=== PATIENT | female | born 1980 | race Caucasian/White ===

== ENCOUNTER 2017-05-22 05:40 | Emergency (ER) | payer OTHER ==
[~2017-05-22] VITALS: Ht 165.1 cm; Wt 102.1 kg
[~2017-05-22 05:40] MED LIST: IBUP-974 PO; METO50TE2 PO
[2017-05-22 05:45] VITALS: BP 118/44
--- NOTE | 2017-05-22 05:48 | NUR ---
PT.AMBULATED TO ER BED 10
--- NOTE | 2017-05-22 05:55 | NUR ---
36/F CAME IN W C/O 12/22 LOWER BACK PAIN, WORSENED YESTERDAY BY PROLONGED STANDING AT WORK. DENIES NUMBNESS/TINGLING, DENIES ANY TRAUMA/INJURY, +PMSC TO BLE, +TENDERNESS TO LOWER BACK . PMH: CHRONIC BACK PAIN
[2017-05-22] MEDS ORDERED: DIAZEPAM PFS 10 MG/2 ML SYR IM ONE (06:35)
[2017-05-22] MEDS ORDERED: KETOROLAC 60 MG/2 ML VIAL IM ONE (06:35)
--- NOTE | 2017-05-22 07:01 | NUR ---
Patient discharged with v/s stable. Written and verbal after care instructions given and explained. Patient alert, oriented and verbalized understanding of instructions. Ambulatory with steady gait. All questions addressed prior to discharge. ID band removed. Patient advised to follow up with PMD. Rx of NORCO, VALIUM, IBUPROFEN given. Patient educated on indication of medication including possible reaction and side effects. Opportunity to ask questions provided and answered.
[2017-05-22 07:02] VITALS: BP 128/76
== END 2017-05-22 07:01 | disposition home or self-care (01) ==
LOC: MED 05:40
DX: M54.5 Low back pain (principal); J45.909 Unspecified asthma, uncomplicated; I45.6 Pre-excitation syndrome; F17.200 Nicotine dependence, unspecified, uncomplicated; Z90.49 Acquired absence of other specified parts of digestive tract; Z88.5 Allergy status to narcotic agent
CPT/HCPCS: 96372; 99284; J1885; J3360; 81002; 81025

== ENCOUNTER 2017-05-28 13:05 | Emergency (ER) | payer OTHER ==
[~2017-05-28] VITALS: Ht 165.1 cm; Wt 102.1 kg
[2017-05-28 13:09] VITALS: BP 116/71
--- NOTE | 2017-05-28 13:25 | NUR ---
36/F PRESENT TO ER C/O LOWER BACK PAIN x YESTERDAY. PT STATES SHE WAS SEEN LAST WEEK FOR SAME S/SX IN [facility] ER. HX: CHRONIC BACK PAIN 2 YEARS MEDS: NORCO, VALIUM . PT STATES IT MOVING DOWN ON MY RIGHT LEG NOW, DENIES N/V/D; SKIN IS PINK/WARM/DRY; AAOX4 WITH EVEN AND STEADY GAIT; LUNGS CLEAR BL; HR EVEN AND REGULAR; PT DENIES ANY FEVER, CP, SOB, OR COUGH AT THIS TIME; PATIENT STATES PAIN OF 8/10 AT THIS TIME; PATIENT POSITIONED FOR COMFORT; HOB ELEVATED; BEDRAILS UP X2; BED DOWN. ER MD MADE AWARE OF PT STATUS.
[2017-05-28] MEDS ORDERED: KETOROLAC 30 MG/ML VIAL IM ONE (13:50)
[2017-05-28] MEDS ORDERED: HYDROcodone/APAP 5/325 MG 1 TAB TAB PO ONE (13:50)
--- NOTE | 2017-05-28 14:08 | NUR ---
PT BACK FROM XRAY
--- NOTE | 2017-05-28 14:25 | NUR ---
Patient discharged with v/s stable. Written and verbal after care instructions given and explained. Patient alert, oriented and verbalized understanding of instructions. Ambulatory with steady gait. All questions addressed prior to discharge. ID band removed. Patient advised to follow up with PMD. Rx of NAPROSYN,NORCO given. Patient educated on indication of medication including possible reaction and side effects. Opportunity to ask questions provided and answered.
[2017-05-28 14:42] VITALS: BP 120/63
== END 2017-05-28 14:25 | disposition home or self-care (01) ==
LOC: MED 13:05
DX: M54.41 Lumbago with sciatica, right side (principal); J45.909 Unspecified asthma, uncomplicated; I45.6 Pre-excitation syndrome; Z88.5 Allergy status to narcotic agent
CPT/HCPCS: 72100; 96372; 99284; J1885

== ENCOUNTER 2017-10-25 17:29 | Inpatient (IN) | payer OTHER ==
[~2017-10-25] VITALS: Ht 165.1 cm; Wt 96.2 kg
[2017-10-25 17:40] VITALS: BP 142/78
--- NOTE | 2017-10-25 17:45 | NUR ---
37 YO F BIB SELF TO ER FOR FLU LIKE SYMPTOMS. PT STATES FEELING "BALLS ON MY NECK" X 3DAYS. WITH FEVER SINCE MIDDLE OF NIGHT. PT STATES PALPATATION WITH SOB, O2 SAT AT 100, TACHYCARDIA 115. DENIES VOMITING, REPORTS FEELING NAUSEOUS. AMBULATORY W/ STEADY GAIT. AAOX4. GCS 15. CMS INTACT. RR EVEN AND UNLABORED. LUNGS CLEAR. ABD SOFT, NON-TENDER. BOWEL SOUNDS ACTIVE X 4 QUADRANTS. BILATERAL LEG SWELLING +1 NON-PITTING/DISCOLORATION NOTED, PT STATES THEY HAVE BEEN LIKE THAT FOR "SOME TIME", UNSURE HOW MANY DAYS/HOW LONG. PEDAL AND POPLITEAL PULSES STONG AND PALPABLE BILATERALLY, WITH CAPILLARY REFILL LESS THAN 3 SECONDS. FULL ROM. ER MD NOTIFIED. PT NEEDS MET. SAFETY PRECAUTIONS IN PLACE. WILL CONTINUE TO MONITOR. 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
[2017-10-25] MEDS ORDERED: ACETAMINOPHEN EXTRA STRENGTH 500 MG TAB PO ONE (17:50)
[2017-10-25] MEDS ORDERED: NACL 0.9% 1,000 ML IV ONE ×2 (17:55→19:15)
[2017-10-25 18:16] LABS: BASOPHILS # (AUTO) 0.1 K/uL (0.00-0.22); BASOPHILS % (AUTO) 0.5 % (0.0-2.0); EOSINOPHILS % (AUTO) 0.2 % (0.0-4.0); HEMATOCRIT 43.6 % (36-48); HEMOGLOBIN 14.6 g/dL (12.0-16.0); LYMPHOCYTES # (AUTO) 1.1 K/uL (2.5-16.5); LYMPHOCYTES % (AUTO) 7.9 % (20.5-51.1); MEAN CORPUSCULAR HEMOGLOBIN 31 pg (27-31); MEAN CORPUSCULAR HGB CONC 33 g/dL (33-37); MEAN CORPUSCULAR VOLUME 91.8 fL (80-94); MONOCYTES # (AUTO) 0.8 K/uL (0.8-1.0); MONOCYTES % (AUTO) 5.9 % (1.7-9.3); NEUTROPHILS # (AUTO) 11.7 K/uL (1.8-7.7); NEUTROPHILS % (AUTO) 85.5 % (42.2-75.2); PLATELET COUNT (AUTO) 226 K/uL (140-450); RED BLOOD CELL COUNT(AUTO) 4.75 MIL/uL (4.20-5.40); RED CELL DISTRIBUTION WIDTH 12.7 % (11.6-13.7); WHITE BLOOD COUNT (AUTO) 13.7 K/uL (4.8-10.8)
--- NOTE | 2017-10-25 18:30 | NUR ---
PT RESTING ON [facility] AT THIS TIME W/ VSS AND SAFETY PRECAUTIONS IN PLACE.. WILL CONTINUE TO MONITOR.
[2017-10-25 18:32] LABS: CARBON DIOXIDE 25.1 mmol/L (21-32); CREATININE 1.1 mg/dL (0.6-1.3); POTASSIUM 3.1 mmol/L (3.5-5.1)
[2017-10-25 18:38] LABS: ALBUMIN 3.7 g/dL (3.4-5.0); TOTAL BILIRUBIN 0.4 mg/dL (0.0-1.0)
[2017-10-25 18:54] LABS: APPEARANCE,URINE CLEAR (CLEAR); BILIRUBIN,URINE NEGATIVE (NEGATIVE); BLOOD, URINE 2+ (NEGATIVE); COLOR,URINE YELLOW (YELLOW); LEUKOCYTE ESTERASE ,URINE TRACE (NEGATIVE); NITRITE, URINE NEGATIVE (NEGATIVE); PH,URINE 6.5 (5.0-9.0); UGLUCOSE NEGATIVE (NEGATIVE)
--- NOTE | 2017-10-25 19:05 | NUR ---
CRITICAL LAB VALUE RECEIVED FROM LAB AT THIS TIME, LACTIC ACID 2.9 ER MD MARTINES NOTIFIED.
--- NOTE | 2017-10-25 19:12 | NUR ---
AMBULATED TO BATHROOM WITH ASSIST
[2017-10-25] MEDS ORDERED: KETOROLAC 30 MG/ML VIAL IVP ONE (19:15)
--- NOTE | 2017-10-25 19:15 | NUR ---
PT SITTING UP IN BED, COMFORT MEASURES OFFERRED. PT TOLERATED WELL. CULTURE COMPLETE. VITALS STABLE.
[2017-10-25 19:17] LABS: PROTHROMBIN TIME 9.5 secs (10.8-13.4)
--- NOTE | 2017-10-25 19:35 | NUR ---
REPORT GIVEN TO GEETHA MOTA AT THIS TIME.
[2017-10-25 19:59] LABS: BARBITURATE, URINE NEG. ng/ml (NEG <=200); BENZODIAZEPINE, URINE NEG. ng/mL (NEG <=200); CANNABINOID, URINE NEG. ng/mL (NEG <=50); COCAINE, URINE NEG. ng/mL (NEG <=300); OPIATE, URINE NEG. ng/mL (NEG <=2000); PHENCYCLIDINE SCREEN,URINE NEG. ng/mL (NEG <=25); RBC,URINE 3-10 (FEW) /HPF (0-5)
--- NOTE | 2017-10-25 20:15 | NUR ---
PT AMBULATED WITH ASSISTANCE TO THE RESTROOM. TOLERATED WELL.
[2017-10-25] MEDS ORDERED: GABA100C PO (20:21)
[2017-10-25] MEDS ORDERED: cefTRIAXone 1,000 MG VIAL ONE (20:34)
[2017-10-25] MEDS ORDERED: NACL 0.9% 1,000 ML IV SCH (21:15)
[2017-10-25 22:05] VITALS: BP 100/52
--- NOTE | 2017-10-25 22:05 | NUR ---
RECEIVED REPORT BY ER NURSE SVETLANA-RN. PT ARRIVED TO UNIT VIA WHEELCHAIR. PT RESTING IN BED. AOX4, ON ROOM AIR WITH IV SITE LEFT AC #20G. SKIN INTACT, AMBULATORY. DISCUSSED PLAN OF CARE AND PT VERBALIZED UNDERSTANDING. NO S/S OF RESPIRATORY DISTRESS OR DISCOMFORT NOTED AT THIS TIME. MRSA COLLECTED. WHITE BOARD UPDATED. ORIENTED PT TO BEDROOM, CALL LIGHT, BED, RESTROOM. BED IN LOWEST POSITION, BED BREAKS ON, BOTH SIDE RAILS UP. BED SIDE TABLE AND CALL LIGHT ARE WITHIN REACH. WILL CONTINUE TO MONITOR.
--- NOTE | 2017-10-25 22:10 | NUR ---
Pt report given to PRAVEEN INIGUEZ. Transfer of care at this time.PT VITALS STABLE
--- NOTE | 2017-10-25 22:47 | NUR ---
Patient will be admitted to care of DR. AGUILAR. Admited to MED SURG. Will go to room 105 b. Belongings list completed. Report to PRAVEEN INIGUEZ.
--- NOTE | 2017-10-25 23:00 | NUR ---
PAGED DR. AGUILAR- DR. STRINGER ON-CALL.
[2017-10-26] VITALS: BP 103/58
--- NOTE | 2017-10-26 | NUR ---
VITAL SIGNS TAKEN AND TOLERATED WELL. PT C/O HEADACHE 06/22-WILL ADMINISTER PAIN MEDICATION. NO S/S OF RESPIRATORY DISTRESS. WILL CONTINUE TO MONITOR.
--- NOTE | 2017-10-26 | NUR ---
DR. STRINGER ORDERED TYLENOL 650MG Q6H PRN PAIN, GABAPENTIN 100MG HS, ROCEPHIN 1G Q24H, AND SCD'S. TRAMADOL WAS NOT ORDERED PER PT ALLERGY TO MORPHINE.
[2017-10-26] MEDS ORDERED: ACETAMINOPHEN 325 MG TAB PO PRN (00:15)
--- NOTE | 2017-10-26 02:00 | NUR ---
PT SLEEPING IN BED AT THIS TIME. NO S/S OF RESPIRATORY DISTRESS OR DISCOMFORT NOTED AT THIS TIME. WILL CONTINUE TO MONITOR.
--- NOTE | 2017-10-26 04:00 | NUR ---
PT CONTINUES TO SLEEP. NO S/S OF RESPIRATORY DISTRESS OR DISCOMFORT NOTED AT THIS TIME. WILL CONTINUE TO MONITOR.
--- NOTE | 2017-10-26 06:00 | NUR ---
PT CONTINUES TO SLEEP. NO S/S OF RESPIRATORY DISTRESS OR DISCOMFORT NOTED AT THIS TIME. WILL CONTINUE TO MONITOR.
--- NOTE | 2017-10-26 07:20 | NUR ---
ENDORSED PT CARE TO DAY SHIFT NURSE THEODORA FOR CONTINUITY OF CARE.
--- NOTE | 2017-10-26 07:25 | NUR ---
RECEIVED REPORT FROM ACTUARIAL TRAINEE NURSE. PT IS SLEEPING IN BED BUT EASILY AWAKEN, PT IS AAOX4, AMBULATORY, SKIN IS INTACT, ON RA, IV IS ON THE LEFT FA, PATENT, INTACT, FLUSHING WELL, NO S/S OF RESPIRATORY DISTRESS OR DISCOMFORT NOTED, DISCUSSED PLAN OF CARE WITH PT, PT VERBALIZED UNDERSTANDING, SAFETY/FALL PRECAUTIONS ARE IN PLACE, CALL LIGHT IS WITHIN REACH, WILL CONTINUE TO MONITOR.
[2017-10-26 08:00] VITALS: BP 116/61
--- NOTE | 2017-10-26 08:48 | NUR ---
PATIENT HAS BEEN SCREENED AND CATEGORIZED HIGH NUTRITION RISK. PATIENT WILL BE SEEN WITHIN 1-2 DAYS OF ADMISSION. 10/26/17 10/27/[address]
[2017-10-26] MEDS ORDERED: BENZOCAINE/MENTHOL 1 LOZ MM PRN (09:20)
[2017-10-26] MEDS ORDERED: IBUPROFEN 400 MG TAB PO PRN (09:20)
--- NOTE | 2017-10-26 09:34 | NUR ---
DR. AGUILAR HERE TO SEE PATIENT.
--- NOTE | 2017-10-26 11:10 | NUR ---
PT SAID SHE WANTED TO LEAVE. I ASKED HER IF SHE HAD ANY QUESTIONS FOR ME OR THE DOCTOR. PT STATED "THERE'S NO POINT OF ME STAYING HERE, ILL FOLLOW UP WITH MY DOCTOR." IV REMOVED, CATHETER TIP INTACT, ID WRIST BAND REMOVED. PT LEFT IN STABLE CONDITION.
--- NOTE | 2017-10-26 13:24 | NUR ---
CM NOTE INITIAL REVIEW FAXED TO [facility] [phone]
[2017-10-26] MEDS ORDERED: GABAPENTIN 100 MG CAP PO SCH (21:00)
== END 2017-10-26 11:10 | disposition left against medical advice (07) | DRG 720 ==
LOC: MED 17:29 → MTU 21:18 → OBSVTOIN 22:15
PROVIDERS: ADMIT Internal Medicine; ATTEND Internal Medicine
DX: A41.9 Sepsis, unspecified organism (principal); E87.1 Hypo-osmolality and hyponatremia; N39.0 Urinary tract infection, site not specified; E87.6 Hypokalemia; J02.9 Acute pharyngitis, unspecified; Z88.6 Allergy status to analgesic agent; J45.909 Unspecified asthma, uncomplicated; Z98.51 Tubal ligation status; Z90.49 Acquired absence of other specified parts of digestive tract
CPT/HCPCS: 96361; 96365; 96375; 99285; G0378; 36415; 71045; 80053; 80305; 81001; 81025; 83605; 85025; 85610; 85730; 87040; 87081; 87086; 93005; J0696; J1885; J7030; J7060; Q0092

== ENCOUNTER 2018-11-02 19:30 | Emergency (ER) | payer OTHER ==
[~2018-11-02] VITALS: Ht 165.1 cm; Wt 90.7 kg
[~2018-11-02 19:30] MED LIST changes: +GABA100C PO; -METO50TE2 PO
[2018-11-02 19:40] VITALS: BP 126/64
--- NOTE | 2018-11-02 20:04 | NUR ---
PT TO ED FOR C/O RT EAR ITCHING AND PAIN S/P INSECT BITE X 1 DAY. MILD SWELLING AND REDNESS NOTED TO RT EAR. NO DRAINAGE OR DISCHARGE NOTED. PT PLACED INTO CHAIR, PENDING EVAL.
[2018-11-02 20:50] VITALS: BP 126/64
--- NOTE | 2018-11-02 20:51 | NUR ---
Patient discharged with v/s stable. Written and verbal after care instructions given and explained. Patient alert, oriented and verbalized understanding of instructions. Ambulatory with steady gait. All questions addressed prior to discharge. ID band removed. Patient advised to follow up with PMD. Rx of KEFELX given. Patient educated on indication of medication including possible reaction and side effects. Opportunity to ask questions provided and answered.
== END 2018-11-02 20:50 | disposition home or self-care (01) ==
LOC: MED 19:30
DX: L08.89 Other specified local infections of the skin and subcutaneous tissue (principal); F17.210 Nicotine dependence, cigarettes, uncomplicated; Z88.6 Allergy status to analgesic agent; Z79.899 Other long term (current) drug therapy
CPT/HCPCS: 99283

== ENCOUNTER 2019-12-29 08:38 | Observation (INO) | payer OTHER ==
[~2019-12-29] VITALS: Ht 165.1 cm; Wt 94.8 kg
--- NOTE | 2019-12-29 08:41 | NUR ---
Patient ambulated to bed 11. RN evaluating patient at bedside.
[2019-12-29 08:46] VITALS: BP 122/72
[2019-12-29] MEDS ORDERED: HYDROmorphone PFS 2 MG/ML SYR IVP ONE (08:55)
[2019-12-29] MEDS ORDERED: ONDANSETRON 4 MG/2 ML VIAL IVP ONE (08:55)
[2019-12-29] MEDS ORDERED: NACL 0.9% 1,000 ML IV SCH (08:55)
[2019-12-29] MEDS ORDERED: KETOROLAC 30 MG/ML VIAL IVP ONE ×2 (08:55→11:30)
--- NOTE | 2019-12-29 09:09 | NUR ---
pt states unable to provide urine sample at this time
--- NOTE | 2019-12-29 09:11 | NUR ---
39/F c/o right lower quadrant pain since 0600 today, denies N/V/D. moaning in pain. VSS, connected to bedside monitor. PMH: BRIAN
--- NOTE | 2019-12-29 09:35 | NUR ---
called CT department to take pt to CT scan. Per Dr. Timmons, okay to not wait on labs prior to CT scan w/ contrast
[2019-12-29 09:36] LABS: BASOPHILS # (AUTO) 0.1 K/uL (0.00-0.22); BASOPHILS % (AUTO) 0.7 % (0.0-2.0); EOSINOPHILS # (AUTO) 0.2 K/uL (0-0.4); EOSINOPHILS % (AUTO) 1.8 % (0.0-4.0); HEMATOCRIT 44.3 % (36-48); HEMOGLOBIN 14.9 g/dL (12.0-16.0); LYMPHOCYTES # (AUTO) 2.8 K/uL (2.5-16.5); LYMPHOCYTES % (AUTO) 22.5 % (20.5-51.1); MEAN CORPUSCULAR HEMOGLOBIN 31 pg (27-31); MEAN CORPUSCULAR HGB CONC 34 g/dL (33-37); MEAN CORPUSCULAR VOLUME 92.3 fL (80-94); MONOCYTES # (AUTO) 0.9 K/uL (0.8-1.0); MONOCYTES % (AUTO) 6.9 % (1.7-9.3); NEUTROPHILS # (AUTO) 8.5 K/uL (1.8-7.7); NEUTROPHILS % (AUTO) 68.1 % (42.2-75.2); PLATELET COUNT (AUTO) 290 K/uL (140-450); RED CELL DISTRIBUTION WIDTH 12.7 % (11.6-13.7); WHITE BLOOD COUNT (AUTO) 12.4 K/uL (4.8-10.8)
[2019-12-29 09:39] LABS: ALBUMIN 4.2 g/dL (3.4-5.0); ANION GAP 15.7 (8-16); CARBON DIOXIDE 25.2 mmol/L (21-32); CREATININE 1.3 mg/dL (0.6-1.3); POTASSIUM 3.9 mmol/L (3.5-5.1); TOTAL BILIRUBIN 0.6 mg/dL (0.0-1.0)
--- NOTE | 2019-12-29 09:41 | NUR ---
to CT scan via rburns
--- NOTE | 2019-12-29 09:49 | NUR ---
informed lab that urine sample is ready to be picked up
--- NOTE | 2019-12-29 09:50 | NUR ---
US tech at bedside for exam.
--- NOTE | 2019-12-29 09:54 | NUR ---
Patient returned from CT scan. RN is reevaluating the patient at bedside.
--- NOTE | 2019-12-29 09:54 | NUR ---
back from CT scan via gurney. U/S tech is waiting at bedside.
[2019-12-29 10:01] LABS: APPEARANCE,URINE HAZY (CLEAR); BILIRUBIN,URINE 1+ (NEGATIVE); BLOOD, URINE 3+ (NEGATIVE); COLOR,URINE DARK YELLOW (YELLOW); LEUKOCYTE ESTERASE ,URINE TRACE (NEGATIVE); NITRITE, URINE POSITIVE (NEGATIVE); UGLUCOSE NEGATIVE (NEGATIVE)
[2019-12-29 10:07] LABS: BARBITURATE, URINE NEGATIVE ng/ml (NEG <=200); BENZODIAZEPINE, URINE NEGATIVE ng/mL (NEG <=200); CANNABINOID, URINE POSITIVE ng/mL (NEG <=50); COCAINE, URINE NEGATIVE ng/mL (NEG <=300); OPIATE, URINE POSITIVE ng/mL (NEG <=2000); PHENCYCLIDINE SCREEN,URINE NEGATIVE ng/mL (NEG <=25)
[2019-12-29 10:14] LABS: RBC,URINE 20-50 /HPF (0-5); URINE AMORPHOUS URATE 1+ /HPF (None Seen)
[2019-12-29] MEDS ORDERED: cefTRIAXone 1,000 MG VIAL ONE (10:38)
[2019-12-29] MEDS ORDERED: NACL 0.9% 1,000 ML IV ONE (11:05)
--- NOTE | 2019-12-29 11:22 | NUR ---
pt crying in pain, states 10/[address] Timmons notified and is speaking to pt at bedside.
[2019-12-29] MEDS ORDERED: FLUC100T PO (11:39)
[2019-12-29] MEDS ORDERED: ATA25 PO (11:39)
[2019-12-29] MEDS ORDERED: HYDR-1096 PO (11:43)
[2019-12-29] MEDS ORDERED: DULO20EC PO (11:46)
[2019-12-29] MEDS ORDERED: ACETAMINOPHEN 325 MG TAB PO PRN (12:45)
[2019-12-29] MEDS ORDERED: MORPHINE SULFATE 2 MG/ML SYR IVP PRN (12:45)
[2019-12-29] MEDS ORDERED: ONDANSETRON 4 MG/2 ML VIAL IVP PRN (12:45)
[2019-12-29] MEDS ORDERED: HYDROmorphone 1 MG/ML AMP IVP PRN (13:00)
--- NOTE | 2019-12-29 13:11 | NUR ---
Patient will be admitted to care of Dr. Hernandez. Admited to Med Surg. Will go to room 126B. Belongings list completed. Report to Marni INIGUEZ.
[2019-12-29 13:20] VITALS: BP 113/71
--- NOTE | 2019-12-29 13:20 | NUR ---
RECEIVED REPORT FROM NURSE BOUDREAUX FOR CONTINUITY OF CARE, PT ARRIVED ON UNIT AT 1311, INTRODUCE SELF TO PT, ORIENT PT TO ROOM, OBTAIN MRSA SWAB SAMPLE, UPDATED WHITEBOARD, PT HAS LEFT AC 20G INFUSING NS AT 125ML/H, BED IN LOW POSITION, SAFETY MEASURES IN PLACE, CALL LIGHT WITHIN REACH, WILL CONTINUE TO MONITOR.
[2019-12-29] MEDS: NACL 0.9% 1,000 ML IV SCH ×2 (13:39→21:49)
--- NOTE | 2019-12-29 14:03 | NUR ---
ADMINISTERED DILAUDID FOR MODERATE PAIN OF STOMACH, PT HAS KIDNEY STONE, PT STATES SHE HAS DULL PAIN, MEDICATION EDUCATION PROVIDED, PT VERBALIZED UNDERSTANDING, PT TOLERATED WELL, PT IS STABLE, CALL LIGHT WITHIN REACH, WILL CONTINUE TO MONITOR.
--- NOTE | 2019-12-29 15:00 | NUR ---
PT RESTING IN BED, NO SIGNS OF DISTRESS NOTED, RESPIRATIONS ARE EVEN AND UNLABORED ON ROOM AIR, CALL LIGHT WITHIN REACH, WILL CONTINUE TO MONITOR.
[2019-12-29 16:00] VITALS: BP 104/63
--- NOTE | 2019-12-29 17:00 | NUR ---
PT ASLEEP IN BED, NO SIGNS OF DISTRESS NOTED, RESPIRATIONS ARE EVEN AND UNLABORED ON ROOM AIR, CALL LIGHT WITHIN REACH, WILL CONTINUE TO MONITOR.
--- NOTE | 2019-12-29 18:59 | NUR ---
NOTIFIED DR RAMIREZ PT HAS PENDING POSSIBLE URETERAL STENTING, ASK IF PT CAN BE NPO TONIGHT FOR POSSIBLE PROCEDURE, RECEIVED TORB FROM DR RAMIREZ FOR NPO AFTER MIDNIGHT.
--- NOTE | 2019-12-29 19:24 | NUR ---
ENDORSE PT TO NIGHT NURSE FOR CONTINUITY OF CARE, PT IS STABLE
--- NOTE | 2019-12-29 19:25 | NUR ---
RECEIVED BEDSIDE ENDORSEMENT FROM AM SHIFT RN. PATIENT IS RESTING, NO SOB, ON ROOM AIR, LH 22G, INTACT, SAFETY MEASURES IN PLACE, PLAN OF CARE DISCUSSED, CALL LIGHT WITHIN REACH.
--- NOTE | 2019-12-29 21:53 | NUR ---
CHANGED A NEW BAG OF NS 1 L AT 125 CC/HR ORDERED, IV SITE PATENT.
[2019-12-30] VITALS: BP 119/73
--- NOTE | 2019-12-30 | NUR ---
PATIENT IS ASLEEP, RESPIRATION EVEN AND UNLABORED.
--- NOTE | 2019-12-30 02:00 | NUR ---
NO C/O PAIN, KEPT COMFORTABLE.
--- NOTE | 2019-12-30 04:32 | NUR ---
CHECKED PATIENT, NOT IN DISTRESS. CALL LIGHT WITHIN REACH.
[2019-12-30] MEDS: NACL 0.9% 1,000 ML IV SCH ×3 (04:45→14:30)
[2019-12-30 05:50] LABS: BASOPHILS # (AUTO) 0.1 K/uL (0.00-0.22); BASOPHILS % (AUTO) 0.7 % (0.0-2.0); EOSINOPHILS # (AUTO) 0.2 K/uL (0-0.4); EOSINOPHILS % (AUTO) 2.4 % (0.0-4.0); HEMATOCRIT 38.8 % (36-48); HEMOGLOBIN 12.9 g/dL (12.0-16.0); LYMPHOCYTES # (AUTO) 2.2 K/uL (2.5-16.5); LYMPHOCYTES % (AUTO) 23.3 % (20.5-51.1); MEAN CORPUSCULAR HEMOGLOBIN 31 pg (27-31); MEAN CORPUSCULAR HGB CONC 33 g/dL (33-37); MEAN CORPUSCULAR VOLUME 93.4 fL (80-94); MONOCYTES # (AUTO) 0.6 K/uL (0.8-1.0); NEUTROPHILS # (AUTO) 6.3 K/uL (1.8-7.7); NEUTROPHILS % (AUTO) 67.6 % (42.2-75.2); PLATELET COUNT (AUTO) 225 K/uL (140-450); RED BLOOD CELL COUNT(AUTO) 4.15 MIL/uL (4.20-5.40); RED CELL DISTRIBUTION WIDTH 14.9 % (11.6-13.7); WHITE BLOOD COUNT (AUTO) 9.4 K/uL (4.8-10.8)
--- NOTE | 2019-12-30 06:33 | NUR ---
IVF FINISHED, HANGED A NEW BAG OF NS 1L AT 125CC/HR, IV SITE INTACT AND PATENT. NO C/O PAIN, CALL LIGHT WITHIN REACH.
--- NOTE | 2019-12-30 07:25 | NUR ---
PATIENT IN STABLE CONDITION, BEDSIDE ENDORSEMENT GIVEN TO AM SHIFT RN FOR CONTINUITY OF CARE.
--- NOTE | 2019-12-30 07:30 | NUR ---
RECEIVED BEDSIDE REPORT FROM HEALTHCARE TRANSLATOR RN FOR CONTINUITY OF CARE. PATIENT RESTING IN BED WITH NO ACUTE DISTRESS NOTED. RESPIRATORY EVEN AND UNLABORED. SKIN WARM AND DRY, INTACT. IV SITE LEFT AN 20G INTACT INFUSING NS @ 125CC/HR. NPO STATUS NOTED. ABDOMEN SOFT NON TENDER. SAFETY MEASURES IN PLACE, WILL CONTINUE TO MONITOR.
[2019-12-30 07:47] LABS: ANION GAP 11.8 (8-16); CARBON DIOXIDE 25.1 mmol/L (21-32); CREATININE 1.1 mg/dL (0.6-1.3); POTASSIUM 3.9 mmol/L (3.5-5.1)
[2019-12-30 08:00] VITALS: BP 111/64
[2019-12-30 08:18] LABS: MAGNESIUM 2.1 mg/dL (1.8-2.4); PHOSPHORUS 3.1 mg/dL (2.5-4.9)
[2019-12-30] MEDS ORDERED: ENOXAPARIN 40 MG/0.4 ML SYR SUBQ SCH (09:00)
--- NOTE | 2019-12-30 09:20 | NUR ---
PATIENT HAS BEEN SCREENED AND CATEGORIZED LOW NUTRITION RISK. PATIENT WILL BE SEEN WITHIN 7 DAYS OF ADMISSION. 01/05/[address]
--- NOTE | 2019-12-30 11:05 | NUR ---
MADE ROUNDS, PATIENT RESTING IN BED WITH RIGHT LATERAL POSITION. DENIES DISCOMFORT. IV INFUSING INDICATED. PATIENT REQUESTED FOR FOOD. EXPLAINED TO THE PATIENT THAT NPO STATUS. SAFETY MEASURES IN PLACE, WILL CONTINUE TO MONITOR.
--- NOTE | 2019-12-30 11:43 | NUR ---
DISCHARGE PLANNING: POC DISCUSSED WITH DR RAMIREZ. PER DR. RAMIREZ, POSSIBLE DC TODAY TO FOLLOW UP WITH UROLOGY OUT PATIENT. Addendum: 12/30/19 at 1153 by Mary Russell ORDER SENT TO [facility]. WILL FOLLOW UP Addendum: 12/30/19 at 1503 by Mary Russell CM JUDITH ABDUL OF [facility] TO CONTACT [facility] AFTER HOURS AT [phone] AND FAX NUMBER [phone]. CONTACTED THE PROVIDED NUMBER, NO ANSWER. IT JUST KEPT ON RINGING. CONTACTED [facility] AFTER HOURS AGAIN TO NO AVAIL. WILL FOLLOW UP DURING BUSINESS HOURS.
--- NOTE | 2019-12-30 14:13 | NUR ---
EXPLAINED TO THE PATIENT ABOUT THE DISCHARGE ORDER. EXPLAINED TO THE PATIENT THAT NEED SOME TIME TO WORK ON THE DISCHARGE PAPER. CALLED [facility] TO BRING FOOD TRAY TO THE PATIENT. PATIENT VERBALIZED UNDERSTANDING.
--- NOTE | 2019-12-30 14:30 | NUR ---
PT REFUSED TO SIGN THE DISCHARGE PAPER, PATIENT REFUSED TO SIGN THE AMA. PATIENT STATED THAT SHE WAS UNHAPPY THAT KEEP HER NPO EVEN WE PROVIDED SANDWICH AND LUNCH TRAY. SHE STATED THAT SHE DID NOT LIKE THE FOOD WE PROVIDED AND GOT VERY MAD. SHE SAID SHE WOULD FOLLOW UP WITH HER PRIMARY MD. PATIENT REMOVED IV BY HERSELF, AND LEFT HOSPITAL.
== END 2019-12-30 14:30 | disposition home or self-care (01) ==
LOC: MED 08:38 → MMU 12:46
PROVIDERS: ADMIT Hospitalist; ATTEND Hospitalist
DX: N20.0 Calculus of kidney (principal); I45.6 Pre-excitation syndrome; F41.9 Anxiety disorder, unspecified; F15.10 Other stimulant abuse, uncomplicated; Z79.899 Other long term (current) drug therapy; Z88.5 Allergy status to narcotic agent
CPT/HCPCS: 36415; 74177; 76856; 80048; 80053; 80305; 81001; 83690; 83735; 84100; 84703; 85025; 87081; 87086; 96361; 96365; 96375; 96376; 99285; C1758; G0378; J0696; J1170; J1885; J2405; J7030; J7060; Q0092; Q9967

== ENCOUNTER 2020-04-25 15:33 | Emergency (ER) | payer OTHER ==
[~2020-04-25] VITALS: Ht 165.1 cm; Wt 93.0 kg
[~2020-04-25 15:33] MED LIST changes: +DULO20EC PO; +FLUC100T PO; -GABA100C PO; +HYDR-1096 PO; -IBUP-974 PO
[2020-04-25 15:40] VITALS: BP 120/64
--- NOTE | 2020-04-25 15:55 | NUR ---
PATIENT W/C ASSISTED TO BED 11.
[2020-04-25] MEDS ORDERED: KETOROLAC 30 MG/ML VIAL IM ONE (16:25)
--- NOTE | 2020-04-25 17:16 | NUR ---
PT PLACED IN SHORT POST. SPLINT CMS WNL BEFORE AND AFTER
[2020-04-25 17:54] VITALS: BP 120/64
--- NOTE | 2020-04-25 17:54 | NUR ---
Patient discharged with v/s stable. Written and verbal after care instructions given and explained. Patient alert, oriented and verbalized understanding of instructions. Ambulatory with CRUTCHES. All questions addressed prior to discharge. ID band removed. Patient advised to follow up with PMD. Rx of IBUPROFEN given. Patient educated on indication of medication including possible reaction and side effects. Opportunity to ask questions provided and answered.
== END 2020-04-25 17:54 | disposition home or self-care (01) ==
LOC: MED 15:33
DX: S86.811A Strain of other muscle(s) and tendon(s) at lower leg level, right leg, initial encounter (principal); I51.9 Heart disease, unspecified; Z85.9 Personal history of malignant neoplasm, unspecified; Z88.5 Allergy status to narcotic agent; X50.9XXA Other and unspecified overexertion or strenuous movements or postures, initial encounter; Y93.89 Activity, other specified; Y92.89 Other specified places as the place of occurrence of the external cause; Y99.8 Other external cause status
CPT/HCPCS: 29515; 73590; 96372; 99283; J1885; 99284

== ENCOUNTER 2020-09-20 17:56 | Emergency (ER) | payer OTHER ==
[~2020-09-20] VITALS: Ht 165.1 cm; Wt 103.4 kg
[2020-09-20 18:00] VITALS: BP 110/92
== END 2020-09-20 18:15 | disposition left against medical advice (07) ==
LOC: MED 17:56
DX: R06.02 Shortness of breath (principal); Z53.21 Procedure and treatment not carried out due to patient leaving prior to being seen by health care provider

== ENCOUNTER 2023-01-06 10:32 | Emergency (ER) | payer OTHER ==
[~2023-01-06] VITALS: Ht 165.1 cm; Wt 85.4 kg
[2023-01-06 10:40] VITALS: BP 118/78; PULSE 92; RESP 20; TEMP 97.9; O2SAT 97
[2023-01-06] MEDS ORDERED: TRAM-748 PO (11:34)
[2023-01-06] MEDS ORDERED: KETOROLAC 30 MG/ML VIAL IM ONE (11:40)
== END 2023-01-06 12:01 | disposition home or self-care (01) ==
LOC: MED 10:32
DX: M54.50 Low back pain, unspecified (principal); I25.10 Atherosclerotic heart disease of native coronary artery without angina pectoris; Z88.5 Allergy status to narcotic agent; Z79.899 Other long term (current) drug therapy
CPT/HCPCS: 96372; 99283; J1885

== ENCOUNTER 2023-10-09 22:31 | Emergency (ER) | payer MEDICAID, OTHER ==
[~2023-10-09] VITALS: Ht 165.1 cm; Wt 90.7 kg
[~2023-10-09 22:31] MED LIST changes: +TRAM-748 PO
[2023-10-09 22:40] VITALS: BP 136/81; PULSE 115; RESP 16; TEMP 98.3; O2SAT 99
== END 2023-10-10 00:27 | disposition home or self-care (01) ==
LOC: MED 22:31
DX: S01.91XA Laceration without foreign body of unspecified part of head, initial encounter (principal); Z79.899 Other long term (current) drug therapy; Z88.5 Allergy status to narcotic agent; X50.9XXA Other and unspecified overexertion or strenuous movements or postures, initial encounter; Y93.89 Activity, other specified; Y92.89 Other specified places as the place of occurrence of the external cause; Y99.8 Other external cause status
CPT/HCPCS: 12001; 90471; 90715; 99283

== ENCOUNTER 2023-10-16 14:42 | Emergency (ER) | payer MEDICAID ==
[~2023-10-16] VITALS: Ht 165.1 cm; Wt 106.6 kg
[2023-10-16 14:52] VITALS: BP 138/84; PULSE 96; RESP 14; TEMP 98.8; O2SAT 98
== END 2023-10-16 15:26 | disposition home or self-care (01) ==
LOC: MED 14:42
DX: S01.01XD Laceration without foreign body of scalp, subsequent encounter (principal); Z48.02 Encounter for removal of sutures; Z79.899 Other long term (current) drug therapy; Z88.5 Allergy status to narcotic agent; W45.8XXD Other foreign body or object entering through skin, subsequent encounter
CPT/HCPCS: 99281